=== PATIENT | male | born 1985 | race Caucasian/White ===

== ENCOUNTER 2016-09-24 11:45 | Day surgery (SDC) | payer BC ==
--- NOTE | ~2016-09-24 | OP ---
Record Of Operation [facility] [address] [place]. [address] NAME: BRIGIDA GARRISON : 83 STATUS : [facility]#: [id number] AGE: 31 ADM/REG DATE : 09/24/16 MR#: [id number] REPORT SERV DATE: 09/24/16 DICTATED BY: Sanju VILLA DATE: 09/24/16 REPORT STATUS : Draft TRANSCRIBED BY: MODL DATE: 09/24/16 DATE OF PROCEDURE: 09/24/2016 PREOPERATIVE DIAGNOSIS: Right ureteral stones, status post recent stent placement. POSTOPERATIVE DIAGNOSIS: Right ureteral stones, status post recent stent placement. PROCEDURE: Cystoscopy, removal of right double-J stent, right retrograde pyelography, ureteroscopy with laser lithotripsy, basket stone extraction, double-J stent placement. SURGEON: Sanju Villa M.D. ANESTHESIA: General endotracheal. COMPLICATIONS: None. DRAINS: 7-[place] x 24 cm Contour double-J stent (on a string). BRIEF HISTORY: Mr. Garrison is a 31-year-old white male, seen by me for the first time about a week ago. He has a history of stone disease and short-bowel syndrome along with chronic renal insufficiency. He presented to the hospital with a creatinine of 3.3 with an obstructing right distal stone. He also had large volume stone on the left without obstruction. There was a question of whether he had an infection and it was noted that his creatinine increased to 3.9 the morning of his surgery but we placed a stent on 09/19/2016, and ultimately his culture was a contaminant. His creatinine prior to discharge from the hospital was 2.64. He is here for stone extraction. The risks of bleeding, infection, anesthesia, injury to adjacent organs, need for continued stent postoperatively etc. were all discussed. There were no unanswered questions. It should be noted that creatinine was checked immediately preoperatively today, it was down to 1.75. DESCRIPTION OF PROCEDURE: Under excellent general anesthesia, the patient was prepped and draped in the standard lithotomy position. Cystoscopy was performed with a 30-degree lens, revealed a normal anterior urethra. The posterior urethra showed a small prostate gland, it was nonobstructing. Inspection of the bladder revealed some stone debris in the base of the bladder and a stent emanating from the right orifice. A flexible grasper was used to remove the stent without difficulty. I inserted and a 5-[place] open-end ureteral catheter and performed a right retrograde pyelogram which confirmed residual filling defect within the ureter especially in the mid ureteral level. I inserted an angled glidewire through that catheter and then alongside a short rigid ureteroscope was inserted. I encountered a small stone in the distal ureter and removed it with a Nitinol basket. I then reinserted the ureteroscope and saw a larger stone in the mid ureteral level that was too large for primary extraction. I inserted 200 micron holmium YAG laser and thoroughly fragmented the stone. Several pieces were extracted to add to the specimen. It was sent for analysis and the rest were dragged into the bladder. I saw no further large volume stone on the right. I deliberately opacified the collecting system, retrofitted the wire in the cystoscope, and placed a 7-[place] x 24 cm Contour double-J stent which coiled nicely in the bladder. The Record Of Operation [address] [place]. [address] NAME: BRIGIDA GARRISON : 83 STATUS : [facility] PAT#: [id number] AGE: 31 ADM/REG DATE : 09/24/16 MR#: [id number] REPORT SERV DATE: 09/24/16 DICTATED BY: Sanju VILLA DATE: 09/24/16 REPORT STATUS : Draft TRANSCRIBED BY: PATRICK DATE: 09/24/16 proximal coil was left in the lower pole calyx. I left the string attached and ultimately affixed it to the penis with Mastisol and Tegaderm. Please add under operative note I plan to discharge Mr. Garrison as an outpatient with the following instructions. DISCHARGE INSTRUCTIONS: 1. Home today. 2. Okay to remove stent at home in three days. 3. Follow up in my office in one-to-two weeks with a KUB and we will have a discussion about management of his left-sided stones. It sounds like he has had a percutaneous procedure in the past. He certainly needs that again and may need more than one access. Further evaluation by Nephrology, etc. for his short bowel syndrome. It should occur at some point as well. DUNIA/PATRICK Sanju Villa M.D. / [id number] CC: Sanju Villa M.D.
[~2016-09-24 11:45] MED LIST: PCET PO; PYR200 PO; SEPTRA DS1 TAB PO
[2016-09-24 13:34] LABS: CALCIUM, SERUM 8.6 MG/DL (8.5-10.4); CHLORIDE, SERUM 108 MMOL/L (96-112); CO2 (CARBON DIOXIDE) 25 MMOL/L (24-34); POTASSIUM, SERUM 4.3 MMOL/L (3.5-5.3); SODIUM, SERUM 139 MMOL/L (135-148)
[2016-09-24 13:35] LABS: BUN (BLOOD UREA NITROGEN) 15 MG/DL (6-23); CREATININE 1.75 MG/DL (0.70-1.30); GFR AFRICAN AMERICAN 58 ML/MIN (>=60); GFR NON AFRICAN AMERICAN 50 ML/MIN (>=60); GLUCOSE, SERUM 80 MG/DL (60-99)
[2016-09-30 12:14] LABS: STONE COMPOSITION TWO DNR (())
== END 2016-09-24 17:15 | disposition home or self-care (01) ==
LOC: SDC 11:45
PROC: 0T768DZ Dilation of Right Ureter with Intraluminal Device, Via Natural or Artificial Opening Endoscopic (ICD-10-PCS; 2016-09-24)
PROC: 0TF68ZZ Fragmentation in Right Ureter, Via Natural or Artificial Opening Endoscopic (ICD-10-PCS; principal; 2016-09-24 12:45)
DX: N20.1 Calculus of ureter (principal); Z87.891 Personal history of nicotine dependence; Z90.49 Acquired absence of other specified parts of digestive tract; Z98.890 Other specified postprocedural states
CPT/HCPCS: 74420; 80048; 82365; C1758; C1769; C1874; J2250; J2270; J2405; J2710; J3010; Q9967